=== PATIENT | male | born 1990 | race Caucasian/White ===

== ENCOUNTER 2020-01-27 19:12 | Emergency (ER) | payer OTHER, SELFPAY ==
--- NOTE | 2020-01-27 20:00 | DI.RAD.S_ITS ---
PROCEDURE: XR HAND RT MIN 3V INDICATIONS: lac, decreased rom TECHNIQUE: 3 views of the hand(s) acquired. COMPARISON: None. FINDINGS: Bones: No fractures or dislocations. Carpal bones are normally aligned. No suspicious bony lesions. Soft tissues: No suspicious soft tissue calcifications. No radiopaque foreign body. Probable laceration at the 4th/5th web space. IMPRESSION: No acute osseous abnormality. Dictated by: Steve Davis M.D. on 01/27/2020 at 21:13 Approved by: Steve Davis M.D. on 01/27/2020 at 21:14
[2020-01-27 20:39] VITALS: BMI 47.4
[2020-01-27 20:40] VITALS: BP 129/79; PULSE 78; RESP 16; TEMP 36.8; O2SAT 97
--- NOTE | 2020-01-27 20:45 | ED_ITS ---
HPI - Wound/Laceration <BRIDGETT Ling - Last Filed: 01/27/20 21:49> General Chief Complaint: Wound/Laceration Stated Complaint: laceration to right hand Time Seen by Provider: 01/27/20 19:54 Source: patient and family Mode of arrival: Ambulatory Limitations: no limitations History of Present Illness HPI narrative: The patient is a 29-year-old male nonsmoker who denies pertinent medical history presents with a chief complaint of a laceration to his right hand. He states is at the base of his 5th digit, and now he can no longer bend his digit. He does not know when his last tetanus was. He states it happened when he grabbed a knife. Review of Systems <BRIDGETT Ling - Last Filed: 01/27/20 21:49> Review of Systems Narrative: GENERAL: Denies chills, fatigue, malaise, fever, sweats. HEENT: Denies sinus pain, ear pain, sore throat, difficulty swallowing, dizziness. RESPIRATORY: Denies dyspnea, cough, wheezing, hemoptysis, sputum. CARDIOVASCULAR: Denies chest pain, palpitations, orthopnea, edema, GASTROINTESTINAL: Denies nausea, vomiting, abdominal pain, diarrhea, constipation, melena. : Denies dysuria, frequency, incontinence, hematuria, urinary retention. MUSCULOSKELETAL: See HPI SKIN: See HPI NEUROLOGIC: Denies weakness, headache, numbness, change in speech, confusion, seizures, incoordination. PSYCHIATRIC: No concerning psychosocial issues. 12 point review of systems is negative except for those stated above Patient History <BRIDGETT Ling - Last Filed: 01/27/20 21:49> Social History Smoking Status: Current every day smoker Substance Use Type: does not use Exam <BRIDGETT Ling - Last Filed: 01/27/20 21:49> Narrative Exam Narrative: GENERAL: This is a well-nourished, well-developed patient, in no acute distress HEAD: Atraumatic. Normocephalic. No temporal or scalp tenderness. EYES: Pupils equal round and reactive. Extraocular motions intact. No scleral icterus. No injection or drainage. ENT: Nose without bleeding, purulent drainage or septal hematoma. Throat without erythema, tonsillar hypertrophy or exudate. Uvula midline. Airway patent. NECK: Trachea midline. No JVD or lymphadenopathy. Supple, nontender, no meningeal signs. CARDIOVASCULAR: Regular rate and rhythm RESPIRATORY: No cough. No increased respiratory effort. No accessory muscle EXTREMITIES: Capillary refill less than 2 seconds all fingers right hand. Able to flex and extend all fingers against resistance other than 5th digit on right hand. Unable to flex right 5th digit. Positive right radial pulse. BACK: Nontender without deformity or crepitance. No flank tenderness. NEURO: AOx3. SKIN: 2 cm laceration at the base of the right 5th digit on the palmar aspect. Initial Vital Signs Initial Vital Signs: Vital Signs Temperature 98.2 F 01/27/20 20:40 Pulse Rate 78 01/27/20 20:40 Respiratory Rate 16 01/27/20 20:40 Blood Pressure 129/79 01/27/20 20:40 Pulse Oximetry 97 01/27/20 20:40 <Larry Boyer DO - Last Filed: 01/28/20 06:16> Initial Vital Signs Initial Vital Signs: Vital Signs Temperature 98.2 F 01/27/20 20:40 Pulse Rate 78 01/27/20 20:40 Respiratory Rate 16 01/27/20 20:40 Blood Pressure 129/79 01/27/20 20:40 Pulse Oximetry 97 01/27/20 20:40 Procedures <BRIDGETT Ling - Last Filed: 01/27/20 21:49> Laceration Repair Laceration 1: Site: hand Side (If applicable): right Size (cm): 2 Description: linear Depth: involves tendon Local Anesthetic: lidocaine 1% and with bicarb Amount of anesthesia used (mL): 4 Pre-repair: wound explored and irrigated extensively (cleansed with hibiclense and iodine ) Skin layer closed with: nylon Size (cm): 4-0 Number of sutures: 3 Technique: simple, interrupted Orthopedic Splinting/Casting Injury #1: Side: right Upper Extremity Injury Location: hand Upper Extremity Immobilizer: ulnar gutter Post splinting neuro exam: intact Placed by: Nursing Course <BRIDGETT Ling - Last Filed: 01/27/20 21:49> Orders Ordered: Discontinued Medications Diphtheria/Tetanus/Acell Pertussis (Adacel) 0.5 ml IM .ONCE ONE Stop: 01/27/20 20:01 Last Admin: 01/27/20 21:13 Dose: 0.5 ml Documented by: JESENIA Lidocaine/Sodium Bicarbonate (Buffered Lidocaine 10 Ml Syr) 10 ml INJ NOW ONE Stop: 01/27/20 20:13 Last Admin: 01/27/20 21:13 Dose: 10 ml Documented by: JESENIA Vital Signs Vital signs: Vital Signs - 8 hr 01/27/20 20:40 Temperature 98.2 F Pulse Rate 78 Respiratory Rate 16 Blood Pressure 129/79 Pulse Oximetry 97 <Larry Boyer DO - Last Filed: 01/28/20 06:16> Orders Ordered: Discontinued Medications Diphtheria/Tetanus/Acell Pertussis (Adacel) 0.5 ml IM .ONCE ONE Stop: 01/27/20 20:01 Last Admin: 01/27/20 21:13 Dose: 0.5 ml Documented by: JESENIA Lidocaine/Sodium Bicarbonate (Buffered Lidocaine 10 Ml Syr) 10 ml INJ NOW ONE Stop: 01/27/20 20:13 Last Admin: 01/27/20 21:13 Dose: 10 ml Documented by: JESENIA Vital Signs Vital signs: Vital Signs - 8 hr 01/27/20 20:40 Temperature 98.2 F Pulse Rate 78 Respiratory Rate 16 Blood Pressure 129/79 Pulse Oximetry 97 MDM - Wound/Laceration <BRIDGETT Ling - Last Filed: 01/27/20 21:49> [facility] Narrative Medical decision making narrative: Patient presents with a chief complaint of laceration. Exam is suggestive a tendon injury of right 5th digit. Tetanus was updated. I spoke with Dr. Romero from [facility]-wound was copiously cleansed, loose sutures completed, x-ray taken. Patient will be placed in ulnar gutter splint, and follow up with Orthopedics this week. Wound does goes in procedural note then placed in ulnar gutter as per other procedural note. Patient has been neurovascularly intact throughout his stay in the emergency department. Discussed at length monitoring for signs and symptoms of infection, the importance of following up with Orthopedics. Patient given have no questions or concerns upon discharge and state understanding of return precautions as well as follow-up care. Discharge Plan Departure Patient Disposition: Home Clinical Impression: Laceration Injury of flexor tendon of hand Qualifiers: Encounter type: initial encounter Laterality: right Qualified Code(s): S66.801A - Unspecified injury of other specified muscles, fascia and tendons at wrist and hand level, right hand, initial encounter Discharge Date/Time: 01/27/20 22:06 Instructions: How to Care for a Laceration After Repair, DI for Laceration Repair, How To Perform RICE (Rest, Ice, Compress, Elevate), How to Take Care of Your Splint, DI for Finger Flexor Tendon Injury Activity Restrictions/Additional Instructions: Thank you for trusting us with your care today As I discussed, I am concerned that you cut the flexor tendon of your 5th digit. Please follow-up with [facility]. Call them tomorrow. I spoke with Dr. Romero about you. Do not submerge your finger or hand into dirty water as this can increase her chance of infection. Please monitor for signs and symptoms of infection. This includes redness, swelling and pus. Please come back to emergency department for any acute concerns I suggestrice as well as [id number] pain medications as needed and able Referrals: [facility] [Provider Group] Abdoul Romero MD [Physician] - <Larry Boyer DO - Last Filed: 01/28/20 06:16> Cosign ED Attending Cosignature Attestation: I was immediately available in the department for consultation. This documentation has been reviewed and I agree with assessment and plan. Supervised by Larry Boyer DO
[2020-01-27] MEDS: LIDO 1%/SOD BICARB 8.4% (10ML) 10 ML SYRINGE INJ (21:13)
[2020-01-27] MEDS: TET,DIPH,PERTUSS(ACELL),VAC/PF 0.5 ML SYRINGE IM (21:13)
[2020-01-27 21:53] VITALS: BP 133/69; PULSE 66; RESP 18; O2SAT 98
== END 2020-01-27 22:06 | disposition home or self-care (01) ==
PROVIDERS: Emergency Provider Nurse Practitioner Family
DX: S66.129A Laceration of flexor muscle, fascia and tendon of unspecified finger at wrist and hand level, initial encounter (principal); W26.0XXA Contact with knife, initial encounter; Z23 Encounter for immunization
CPT/HCPCS: 29125; 73130; 90471; 99283; 99284; 90715

== ENCOUNTER → 2020-02-04 10:52 | Outpatient (CLI) | payer OTHER, SELFPAY ==
[2020-02-04 13:00] LABS: COVID19 -Nasal RAPID Negative (Negative)
== END ==
PROVIDERS: Visit Provider Physician Assistant
DX: Z11.59 Encounter for screening for other viral diseases (principal)
CPT/HCPCS: 87635

== ENCOUNTER 2020-02-05 11:52 | Day surgery (SDC) | payer OTHER, SELFPAY ==
[2020-02-04 14:56] VITALS: BMI 22.2
[2020-02-05] VITALS (8 sets, daily range): BP systolic 106–120; BP diastolic 69–78; PULSE 59–73; RESP 12–16; TEMP 36.4–37; O2SAT 97–100; BMI 22.2
[2020-02-05] MEDS: LACTATED RINGERS 1,000 ML 42 ML IV ×2 (12:38→14:46)
[2020-02-05] MEDS: GABAPENTIN 300 MG CAPSULE PO (12:39)
[2020-02-05] MEDS: ACETAMINOPHEN 325 MG TABLET 975 MG PO (12:39)
[2020-02-05] MEDS: SCOPOLAMINE 1 PATCH TOP (12:41)
--- NOTE | 2020-02-05 13:48 | PM.PREOP ---
Pre-operative Note COVID-19 COVID-19 status: Negative Result date/Date tested (Pos, Neg/Pending): 02/04/20 Interval Note History & Physical reviewed/Exam performed by Physician: Yes Changes to H&P: No
[2020-02-05] MEDS: MIDAZOLAM 5 MG/ML VIAL 2 MG IV (13:50)
[2020-02-05] MEDS: CEFAZOLIN 2 GM/100 ML FROZ.PIGGY IV (14:03)
--- NOTE | 2020-02-05 14:15 | SUR.OPER ---
Supine on padded OR bed, head on pillow, Right arm on large padded arm board controlled by surgeon, Left arm secured on padded arm boards at <90 degrees abduction, legs uncrossed, safety belt at thigh.
[2020-02-05] MEDS: BUPIVACAINE 0.5% W/ EPI (PF) 30 ML VIAL INJ (14:26)
--- NOTE | 2020-02-05 15:13 | P.OP_ITS ---
Operative Date/Time/Diagnoses Date of procedure: 02/05/20 Time of procedure: 14:00 Pre-op diagnosis: Right small finger flexor tendon laceration Post-op diagnosis: same Procedure & Clinicians Procedure: Right small finger flexor tendon repair x2 Same procedure as scheduled: Yes Indications: Right small finger laceration Surgeon: Francis Evans Click Yes if Unassisted: Yes Anesthesia Type: General Operative Notes Findings: Complete laceration of the FDS and FDP tendons to the right small finger. No sign of any digital nerve laceration Closure Type: primary Specimen(s): none sent Estimated Blood Loss (mL): 2 Blood products transfused: none Tourniquet time (min): 50 Procedure in detail: On date of service, patient was met in the holding area where his operative site was signed and witnessed by the OR staff. Surgeries o nce again discussed with the patient in remaining questions or concerns he had were answered fully. Patient was taken back to the operating theater placed on the operating table in a supine position. Great care was taken to ensure that all bony prominences were appropriately padded. Time-out was performed verifying patient's name, procedure, and operative site. The right arm was prepped and draped in the normal sterile fashion. Previously a tourniquet was placed up along the upper extremity. An Esmarch was used to exsanguinate the right arm and the tourniquet was turned up to 250 mm of mercury. Lateral incision was made exposing the 5th finger. Patient had a transverse laceration right at the proximal finger crease. Fifteen blade was used to incise through skin and fascial tissue. Blunt dissection was performed using tenotomy scissors. Blunt dissection was continued until the radial ulnar digital nerves were identified. There was no sign of any laceration. Patient had signs of a complete laceration of the FDS and FDP tendons. Both proximal ends were caught in the A1 manjeet. The distal ends were up towards the A4 manjeet. Using a looped 4 0 Supramid, sutures were passed in both the distal and proximal ends. The sutures were then used to shuttle both tendons through the pulleys. Once the ends were closed together, 6 0 Prolene was used to do a locking peritendinous stitch. Once this was done a 6 strand repair was performed using the looped Supramid. This was then followed by the 6 0 Prolene locked in a circumferential fashion reinforcing the 6 strand super med repair. Super med was used once again to repair the FDS tendon to the separate slips. Proximal tendon ends were passed through the pulleys in a similar fashion. Once through the A2 manjeet were then able to do a direct repair with the 2 slips of the FDS tendons distally. This provided a santamaria repair of both tendons. At this point the wound was then copiously irrigated and then closed with nylon. The hand was then cleaned, dried, and dressed and patient was placed into a splint and taken to the PACU in stable condition. Complications: none Post-operative Condition: stable Disposition: PACU Plan for aftercare: Patient will follow our postoperative protocol for zone 2 flexor tendon to repair.
[2020-02-05] MEDS: fentaNYL 100 MCG/2 ML INJ IV (15:28)
[2020-02-05] MEDS: OXYCODONE IR 5 MG TABLET PO (15:29)
--- NOTE | 2020-02-05 15:44 | SUR.PHASEI ---
Patient rates pain 1/10. Tolerating po. Has sensation to right hand. Cap refill < 2 seconds to right hand. Right radial pulse +2.
== END 2020-02-05 16:30 | disposition home or self-care (01) ==
PROVIDERS: PCP Family Medicine; Referring Provider Orthopaedic Surgery; Visit Provider Orthopaedic Surgery
PROC: (CPT 26356; principal; 2020-02-05 13:45)
DX: S66.126A Laceration of flexor muscle, fascia and tendon of right little finger at wrist and hand level, initial encounter (principal); W26.0XXA Contact with knife, initial encounter; Y93.89 Activity, other specified; F17.210 Nicotine dependence, cigarettes, uncomplicated
CPT/HCPCS: 26356 ×2; J0690; J1100; J1885; J2250; J2405; J2704; J3010

== ENCOUNTER 2020-07-06 23:01 | Emergency (ER) | payer OTHER, SELFPAY ==
[2020-07-06 23:17] VITALS: BP 124/72; PULSE 62; RESP 18; TEMP 36.8; O2SAT 98; BMI 22.4
--- NOTE | 2020-07-06 23:29 | ED.GIBLEED ---
HPI - GI Bleed General Chief complaint: GI Bleed Stated complaint: blood in stool Time Seen by Provider: 07/06/20 23:17 Source: patient Mode of arrival: Ambulatory Limitations: no limitations History of Present Illness HPI Narrative: Patient is a 29-year-old male here for evaluation of bright red blood per rectum. He states that he has been having bleeding when he has bowel movements off and on for the past month. He states that it is now occurring more often and today he thought that it was more than what at has been. He reports some abdominal pain but does not think that that is consistent. No fevers. No easy bruising. No blood in his urine. Has not seen his primary doctor. Does not take nonsteroidal anti-inflammatories. States he does not have painful bowel movements. He does report that he has to push in order to have a bowel movement most of the time although he does feel that it is soft and not constipated. Related Data Previous Rx's Medication Instructions Recorded hydrocodone-acetaminophen [Morrison] 2 tab PO Q4-6H PRN #30 tab 02/05/20 Allergies Allergy/AdvReac Type Severity Reaction Status Date / Time No Known Drug Allergies Allergy Verified 02/05/20 12:17 Review of Systems Constitutional Constitutional: Denies fatigue, Denies fever(s) and Denies headache(s) ENT Ears, Nose, Mouth, and Throat: Denies headache(s) Cardiovascular Cardiovascular: Denies chest pain and Denies dyspnea Respiratory Respiratory: Denies dyspnea Gastrointestinal Gastrointestinal: Reports abdominal pain, Denies melena, Reports hematochezia, Denies change in bowel habits, Denies nausea and Denies vomiting Genitourinary Genitourinary: Denies hematuria and Denies dysuria Genitourinary: Denies hematuria and Denies dysuria Musculoskeletal Musculoskeletal: Denies arthralgias and Denies myalgias Integumentary/Breasts Skin/Breast: Denies lesions and Denies rash Neurologic Neurologic: Denies behavioral changes and Denies headache(s) Psychiatric Psychiatric: Denies behavioral changes Endocrine Endocrine: Denies fatigue Hematologic/Lymphatic Hematologic/Lymphatic: Denies easy bleeding and Denies easy bruising Allergic/Immunologic Allergic/Immunologic: Denies urticaria Patient History Medical History Healthy adult (Acute) Surgical History (Updated 02/04/20 @ 15:00 by Paula Villarreal RN) No history of previous surgery (Acute) Social History household members: spouse Smoking Status: Current every day smoker alcohol intake: current Smoking Status: Current every day smoker tobacco type: cigarettes and smokeless tobacco alcohol intake frequency: holidays/special occasions only Substance Use Type: does not use Exam Initial Vital Signs Initial Vital Signs: Vital Signs Temperature 98.2 F 07/06/20 23:17 Pulse Rate 62 07/06/20 23:17 Respiratory Rate 18 07/06/20 23:17 Blood Pressure 124/72 07/06/20 23:17 Pulse Oximetry 98 07/06/20 23:17 Const General: cooperative and comfortable Limitations: mental status not altered HENMT Head: normal to inspection and normocephalic Resp Effort & Inspection: normal respiratory effort Auscultation: clear to auscultation bilaterally Cardio Rate: regular rate Rhythm: regular rhythm GI Inspection: non-distended Palpation: soft and No firm Rectal Exam: visual inspection normal, normal sphincter tone, heme negative stool, No hemorrhoids, No laceration and No lesions Skin Lesions: no lesions Rashes: no rashes Neuro General: patient alert, patient awake and patient oriented x3 Cognition: normal cognition Speech: speech normal Extrem General: normal to inspection and capillary refill normal Psych Appearance: grossly normal and well kempt Course Vital Signs Vital signs: Vital Signs - 8 hr 07/06/20 23:17 Temperature 98.2 F Pulse Rate 62 Respiratory Rate 18 Blood Pressure 124/72 Pulse Oximetry 98 MDM - GI Bleed MDM Narrative Medical decision making narrative: Patient has benign exam. Has heme-negative stool here in the ER. No hemorrhoids on the exam. He does not have any abdominal tenderness. No fevers. Low suspicion for infection. Discussed with him the importance of maintaining soft regular bowel movements and avoiding straining. Informed any need to talk with his primary doctor about further workup to include a potential colonoscopy. Feel no further workup here in the ER. He expressed understanding and agreement. Discharge Plan Departure Patient Disposition: Home Clinical Impression: Bright red blood per rectum Instructions: DI for Rectal Bleeding Activity Restrictions/Additional Instructions: I do recommend that you contact your primary doctor to discuss further workup to include the indications for referral to see Gastroenterology. Return to the emergency department for any fevers, worsening pain or any other new or worsening symptoms. Prescriptions: No Action hydrocodone-acetaminophen [Morrison] 5-325 mg tablet 2 tab PO Q4-6H PRN (Reason: pain) Qty: 30 RF: 0 Referrals: Carolyn Kerr DO [Primary Care Provider] -
== END 2020-07-06 23:37 | disposition home or self-care (01) ==
PROVIDERS: Emergency Provider Emergency Medicine; PCP Family Medicine
DX: K62.5 Hemorrhage of anus and rectum (principal)
CPT/HCPCS: 99281

== ENCOUNTER 2020-08-27 18:15 | Emergency (ER) | payer OTHER, SELFPAY ==
[2020-08-27 18:22] VITALS: BP 118/70; PULSE 83; RESP 16; TEMP 36.7; O2SAT 100; BMI 21.2
--- NOTE | 2020-08-27 18:48 | ED_ITS ---
HPI - GI Bleed General Chief complaint: GI Bleed Stated complaint: blood in stool Time Seen by Provider: 08/27/20 18:37 Source: patient Mode of arrival: Ambulatory Limitations: no limitations History of Present Illness HPI Narrative: Patient is a 29-year-old male who presents with bright red blood per rectum. He states he has actually had this happen multiple times over the last 1 year. He says usually just goes away he denies any hard stool or constipation no history of hemorrhoids. No family history of colon or rectal cancer. But today he got nervous because he saw an actual blood clot in the toilet. He is still having stool he showed me a picture but there was a blood clot in the toilet. He denies and any nausea or vomiting. He has mild intermittent abdominal pain but nothing too bad. He has not had fever sweats weight loss MD complaint: blood streaked stool Relieving factors: none Exacerbating factors: none Related Data Previous Rx's Medication Instructions Recorded hydrocodone-acetaminophen [Counce] 2 tab PO Q4-6H PRN #30 tab 02/05/20 Allergies Allergy/AdvReac Type Severity Reaction Status Date / Time No Known Drug Allergies Allergy Verified 02/05/20 12:17 Review of Systems Review of Systems Narrative: GENERAL: Denies chills, fatigue, malaise, fever, sweats, travel HEENT: Denies sinus pain, ear pain, sore throat, difficulty swallowing, neck pain RESPIRATORY: Denies dyspnea, cough, wheezing, hemoptysis, sputum. CARDIOVASCULAR: Denies chest pain, palpitations, orthopnea, edema GASTROINTESTINAL: See HPI : Denies dysuria, frequency, incontinence, hematuria, urinary retention, flank pain. MUSCULOSKELETAL: Denies weakness, joint pain, or bony pain SKIN: No rash, no erythema, no pruritus NEUROLOGIC: Denies weakness, dizziness, headache, numbness, change in speech, confusion PSYCHIATRIC: No concerning psychosocial issues. 12 point review of systems is negative except for those stated above and HPI Patient History Medical History (Updated 08/27/20 @ 19:48 by Farheen Brower DO) Healthy adult Surgical History No history of previous surgery Social History household members: spouse Smoking Status: Current every day smoker alcohol intake: current Smoking Status: Current every day smoker tobacco type: cigarettes and smokeless tobacco alcohol intake frequency: holidays/special occasions only Substance Use Type: does not use Exam Initial Vital Signs Initial Vital Signs: Vital Signs Temperature 98.0 F 08/27/20 18:22 Pulse Rate 83 08/27/20 18:22 Respiratory Rate 16 08/27/20 18:22 Blood Pressure 118/70 08/27/20 18:22 Pulse Oximetry 100 08/27/20 18:22 GENERAL: Well-appearing, well-nourished and in no acute distress. HEENT: Head atraumatic,EOMI, pupils reactive, face symmetric, moist mucous membranes CARDIOVASCULAR: Regular rate and rhythm without murmurs, rubs or gallops. RESPIRATORY: Breath sounds equal bilaterally, no wheezes rales or rhonchi. ABDOMEN: Soft, nontender. Normoactive bowel sounds all 4 quadrants. No guarding or rebound. RECTAL: Hemoccult-positive, no hemorrhoids, nontender EXTREMITIES: Normal range of motion, no clubbing or edema. Neurovascularly intact NEUROLOGICAL: Alert and oriented x4.Normal gait and speech. Cranial nerves II through XII grossly intact. SKIN: Warm, dry, no laceration, no petechiae, no rashes or lesions. Course Orders Ordered: ED Orders 08/27/20 19:07 Complete Blood Count AUTO DIFF Stat Comprehensive Metabolic Panel Stat Partial Thromboplastin Time Stat Prothrombin Time INR Stat Vital Signs Vital signs: Vital Signs - 8 hr 08/27/20 18:22 08/27/20 19:56 Temperature 98.0 F Pulse Rate 83 80 Respiratory Rate 16 18 Blood Pressure 118/70 141/86 H Pulse Oximetry 100 100 MDM - GI Bleed Lab Data Attestation: I reviewed the patient's lab results. Result diagrams: 08/27/20 19:07 08/27/20 19:07 Labs: Lab Results 08/27/20 08/27/20 08/27/20 Range/Units 19:07 19:07 19:07 WBC 9.4 (4.5-11.0) X10^3/uL RBC 5.07 (4.5-5.9) X10^6/uL Hgb 15.0 (13.5-17.5) g/dL Hct 44.1 (41-53) % MCV 87.0 (80-100) fL MCH 29.6 (26-34) PG MCHC 34.0 (30-36) % RDW 13.2 (11.6-14.8) % Plt Count 241 (150-400) X10^3/uL Neut % (Auto) 75.1 H (50-75) % Lymph % (Auto) 14.7 L (25-40) % [place] % (Auto) 7.9 (3-14) % Eos % (Auto) 1.7 L (2-4) % Baso % (Auto) 0.6 (0-2) % Neut # (Auto) 7100 H (1275-6283) /uL Lymph # (Auto) 1400 (7734-1325) /uL [place] # (Auto) 700 (0-900) /uL Eos # (Auto) 200 (0-450) /uL Baso # (Auto) 100 (0-100) /uL PT 11.9 (10.1-12.7) SECONDS INR 1.0 (0.9-1.3) APTT 29 (26.4-36.2) SECONDS Sodium 138 (137-145) mmol/L Potassium 4.0 (3.4-5.1) mmol/L Chloride 101 (98-107) mmol/L Carbon Dioxide 30 (22-32) mmol/L BUN 15 (9-20) mg/dL Creatinine 0.66 (0.66-1.25) mg/dL Estimated GFR > 60.0 (>60) mL/min BUN/Creatinine Ratio 22.7 H (6-22) Glucose 91 (70-100) mg/dL Calcium 9.6 (8.4-10.2) mg/dL Total Bilirubin 1.2 (0.2-1.3) mg/dL AST 32 (17-59) IU/L ALT 19 (<50) IU/L Alkaline Phosphatase 45 (38-126) U/L Total Protein 7.9 (6.3-8.2) g/dL Albumin 4.7 (3.5-5.0) g/dL Globulin 3.2 (1.7-4.1) g/dL Albumin/Globulin Ratio 1.5 (1.0-2.8) MDM Narrative Medical decision making narrative: Patient is hemodynamically stable. He showed me a picture he had 1 blood clot in the toilet an actual stool. He is Hemoccult positive. At this time recommend outpatient follow-up with a colonos copy. I discussed this at length with patient. No risk factors. Discussed with him when he should return to the ED Discharge Plan Departure Patient Disposition: Home Clinical Impression: Bright red rectal bleeding Instructions: DI for Rectal Bleeding Activity Restrictions/Additional Instructions: *You have been diagnosed with rectal bleeding *What to do: You need to follow-up with her primary care provider and have a colonoscopy. Expect to have a little bit more bleeding but it should stop. *Continue to take medications as directed *Follow up with your primary care provider in 2-3 days *Return to ER if you should have significant amount of bleeding, dizziness l ightheadedness passing out or any new, worsening or concerning symptoms Prescriptions: No Action hydrocodone-acetaminophen [Counce] 5-325 mg tablet 2 tab PO Q4-6H PRN (Reason: pain) Qty: 30 RF: 0 Referrals: Carolyn Kerr DO [Primary Care Provider] -
[2020-08-27 19:16] LABS: Add Manual Diff / Slide Review NO; Basophils Absolute Auto 100 /uL (0-100); Basophils Percent Auto 0.6 % (0-2); Eosinophils Absolute Auto 200 /uL (0-450); Eosinophils Percent Auto 1.7 % (2-4); Hematocrit 44.1 % (41-53); Lymphocytes Absolute Auto 1400 /uL (1100-4500); Lymphocytes Percent Auto 14.7 % (25-40); Mean Corpuscular Hemoglobin 29.6 PG (26-34); Monocytes Absolute Auto 700 /uL (0-900); Monocytes Percent Auto 7.9 % (3-14); Neutrophils Absolute Auto 7100 /uL (1500-7000); Neutrophils Percent Auto 75.1 % (50-75); Platelet Count 241 X10^3/uL (150-400); Red Blood Cell Count 5.07 X10^6/uL (4.5-5.9); Red Cell Distribution Width 13.2 % (11.6-14.8); White Blood Cell Count 9.4 X10^3/uL (4.5-11.0)
[2020-08-27 19:23] LABS: Prothrombin Time 11.9 SECONDS (10.1-12.7)
[2020-08-27 19:25] LABS: PTT Partial Thromboplastin Tim 29 SECONDS (26.4-36.2)
[2020-08-27 19:28] LABS: Alanine Aminotransferase 19 IU/L (<50); Albumin 4.7 g/dL (3.5-5.0); Albumin Globulin Ratio 1.5 (1.0-2.8); Alkaline Phosphatase 45 U/L (38-126); Aspartate Aminotransferase 32 IU/L (17-59); BUN Creatinine Ratio 22.7 (6-22); Bilirubin Total 1.2 mg/dL (0.2-1.3); Blood Urea Nitrogen 15 mg/dL (9-20); Calcium 9.6 mg/dL (8.4-10.2); Carbon Dioxide 30 mmol/L (22-32); Chloride 101 mmol/L (98-107); Estimated Glomerular Filt Rate > 60.0 mL/min (>60); Globulin 3.2 g/dL (1.7-4.1); Glucose 91 mg/dL (70-100); HEMOLYSIS < 15 (0-50); Sodium 138 mmol/L (137-145); Total Protein 7.9 g/dL (6.3-8.2)
[2020-08-27 19:56] VITALS: BP 141/86; PULSE 80; RESP 18; O2SAT 100
== END 2020-08-27 19:57 | disposition home or self-care (01) ==
PROVIDERS: Emergency Provider Emergency Medicine; PCP Family Medicine
DX: K62.5 Hemorrhage of anus and rectum (principal); F17.210 Nicotine dependence, cigarettes, uncomplicated
CPT/HCPCS: 36415; 80053; 85025; 85610; 85730; 99283